=== PATIENT | female | born 1990 | race Caucasian/White ===

== ENCOUNTER → 2017-05-25 20:36 | Outpatient (CLI) | payer OTHER, SELFPAY ==
[2017-05-25 23:08] LABS: Chlamydia Trachomatis by PCR Negative (Negative)
[2017-05-25 23:09] LABS: Neisserai gonorrhoeae by PCR Negative (Negative); Probe Check PASS; Sample Adequacy Control PASS; Specimen Processing Control PASS
[2017-05-28 08:38] LABS: HPV Reflexed? NOT INDICATED
== END ==
PROVIDERS: Visit Provider Obstetrics & Gynecology
DX: Z11.3 Encounter for screening for infections with a predominantly sexual mode of transmission (principal); Z34.81 Encounter for supervision of other normal pregnancy, first trimester
CPT/HCPCS: 87086; 87491; 87591; 88175; G0145

== ENCOUNTER → 2017-06-02 14:21 | Outpatient (CLI) | payer OTHER, SELFPAY ==
--- NOTE | 2017-06-02 14:22 | US_ITS ---
STUDY: FIRST TRIMESTER OBSTETRICAL ULTRASOUND REASON FOR EXAM: Female, 27 years old. Small for dates. Assess viability. LMP: 04/07/2017 TECHNIQUE: Transvaginal real-time exam with moreno scale image documentation and limited Doppler color flow. PRIOR ULTRASOUND: None. FINDINGS: There is visualization of a single gestational sac in a normal intrauterine position. The mean sac diameter (MSD) measures 2.37 cm, indicating an estimated gestational age (EGA) of 7 weeks, 3 days. The gestational sac shape is within normal limits. There is a visualized yolk sac. The yolk sac measures 2.4 mm. The placenta is non-visualized. There is visualization of a live embryo. The crown-rump length (CRL) measures 0.76 cm, indicating an estimated gestational age (EGA) of 6 weeks, 5 days. There is demonstrated cardiac activity with a heart rate of 130 bpm. The estimated gestation age (EGA) by LMP is 8 weeks, 0 days. The estimated date of delivery (ARUN) by LMP is 01/12/2018. The estimated gestation age (EGA) by US is 7 weeks, 1 days. The estimated date of delivery (ARUN) by US is 01/18/2018. The uterus measures 9.9 x 4.9 cm. There is no demonstrated uterine fibroid. The cervix is closed. 1.3 x 0.4 x 2.9 cm subchorionic hemorrhage. The right ovary measures 5.3 x 2.6 x 2.7 centimeter. There is a 2.4 x 2.3 x 2.1 cm simple right ovarian cyst. There is no visualized right adnexal mass or complex lesion. The left ovary measures 2.7 x 1.5 x 1.4 cm. There is no left ovarian cyst. There is no visualized left adnexal mass or complex lesion. Single pocket of right paraovarian fluid. US/Init OB < 14Wks US IMPRESSION: Single living intrauterine fetus of 7 weeks and 1 day with an ARUN of 01/18/2018. heart rate of 130 bpm. Moderate size, 1.3 x 0.4 x 2.9 cm subchorionic hemorrhage. 2.4 x 2.3 x 3.1 cm simple cyst of the right ovary with a small right paraovarian fluid collection. Normal left ovary. Electronically Signed: Tiffany Franco MD at 15:32 EDT , Service support ,
[2017-06-02 15:23] LABS: Absolute Lymphocyte Count 2.74 X10^3/ul (0.83-4.51); Absolute Neutrophil Count 4.4 X10^3/uL (2.0-7.7); Basophil# 0.04 X10^3/uL; Basophil% 0.5 % (0-1); Eosinophil# 0.08 X10^3/uL; Eosinophils% 1.1 % (0-5); Hemoglobin 12.8 g/dl (12.0-15.0); Lymphocyte # 2.74 X10^3/ul (4.0); Lymphocyte % 36.1 % (19-41); Mean Corp Hgb Conc 34.6 g/gl (32-36); Mean Corpuscular Hgb 28.9 pg (27.0-32.0); Mean Corpuscular Volume 83.5 fL (81-99); Mean Platelet Vol. 9.7 fl (6.2-12.0); Monocyte# 0.35 X10^3/uL; Monocyte% 4.6 % (0-10); Neutrophil # 4.37 X10^3/uL (2.7-7.7); Neutrophil % 57.6 % (47-70); Platelet Count 311 K/mm3 (150-450); RBC Distribution Width CV 12.2 % (11.6-14.6); RBC Distribution Width SD 36.8 fl (35.1-43.9); Red Blood Count 4.43 M/mm3 (4.2-5.4); White Blood Count 7.6 K/mm3 (4.4-11.0)
[2017-06-02 15:26] LABS: POSITIVE COUNT NO; POSITIVE DIFFERENTIAL NO; POSITIVE MORPHOLOGY NO
[2017-06-03 03:15] LABS: Rapid Plasmin Reagin (RPR) NONREACTIVE (NONREACTIVE)
[2017-06-03 11:15] LABS: HIV - WCH Non-Reactive (Nonreactive); Rubella IgG 2.7 IU/mL
[2017-06-05 11:21] LABS: HEPATITIS B SURFACE AG Negative (Negative)
== END ==
PROVIDERS: Visit Provider Obstetrics & Gynecology
DX: Z34.81 Encounter for supervision of other normal pregnancy, first trimester (principal)
CPT/HCPCS: 36415; 76801; 85025; 86592; 86703; 86762; 86850; 86900; 87340

== ENCOUNTER → 2017-08-18 12:12 | Outpatient (CLI) | payer OTHER, SELFPAY ==
--- NOTE | 2017-08-18 12:14 | US_ITS ---
STUDY: SECOND AND THIRD TRIMESTER OBSTETRICAL ULTRASOUND REASON FOR EXAM: Female, 27 years old. survey. LMP: 04/07/2017 TECHNIQUE: Transabdominal PRIOR ULTRASOUND: 06/02/2017. FINDINGS: There is a single intrauterine fetus. The fetus is in a breech presentation. There is demonstrated cardiac activity with a heart rate of 144 bpm. There is a normal amniotic fluid volume. The largest amniotic fluid pocket measures 3.0 cm. The placenta is posterior in location and is not low lying. There are Grade 0 placental changes. The cervix measures 4.4 cm in length. The bilateral adnexal regions are normal. BIOMETRY: BPD: 4.0: 18 weeks, 2 days HC: 15.1: 18 weeks, 2 days AC: 13.2: 18 weeks, 6 days FL: 2.7: 18 weeks, 3 days CI: FL/BPD: FL/HC: FL/AC: HC/AC: age by current US: 18 weeks, 4 days. ARUN by current US: 01/15/2018. Estimated weight: 243 grams, +/- 36 grams, 20 %. age by prior US: weeks, days. ARUN by prior US: . Age by LMP: 19 weeks, 0 days. ARUN by LMP: 01/12/2018. ANATOMY: Gender: Cranium: Normal lateral ventricles. Normal choroid plexus. Normal cerebellum. Normal cisterna magna. Normal face, nose and lips. Chest: Normal 4-chamber heart. Abdomen/Pelvis: Normal diaphragm. Normal stomach. Normal abdominal wall. Normal cord insertion. Normal 3 vessel cord. Normal kidneys. Normal bladder. Spine: Normal cervical spine. Normal thoracic spine. Normal lumbar spine. Normal sacrum. Extremities: Normal bilateral upper extremities. Normal bilateral lower extremities. US/OB Anatomy Scan IMPRESSION: Single live fetus in a vertex presentation. No demonstrated anatomic abnormality. Placenta is grade 0 and is not low-lying. Cervix is closed. age by current US: 18 weeks, 4 days. ARUN by current US: 01/15/2018. Estimated weight: 243 grams, +/- 36 grams, 20 %. Electronically Signed: Randy Moy MD at 13:59 EDT , Service support ,
== END ==
LOC: OPUS 12:13
PROVIDERS: Visit Provider Nurse Practitioner Women's Health
DX: O34.219 Maternal care for unspecified type scar from previous cesarean delivery (principal); Z3A.00 Weeks of gestation of pregnancy not specified
CPT/HCPCS: 76805

== ENCOUNTER → 2017-10-13 11:41 | Outpatient (CLI) | payer OTHER, SELFPAY ==
[2017-10-13 12:51] LABS: Absolute Lymphocyte Count 1.98 X10^3/ul (0.83-4.51); Absolute Neutrophil Count 5.2 X10^3/uL (2.0-7.7); Basophil# 0.03 X10^3/uL; Basophil% 0.4 % (0-1); Eosinophil# 0.05 X10^3/uL; Eosinophils% 0.7 % (0-5); Hematocrit 32.8 % (37-47); Hemoglobin 11.4 g/dl (12.0-15.0); Lymphocyte # 1.98 X10^3/ul (4.0); Mean Corp Hgb Conc 34.8 g/gl (32-36); Mean Corpuscular Hgb 31.1 pg (27.0-32.0); Mean Corpuscular Volume 89.4 fL (81-99); Mean Platelet Vol. 10.1 fl (6.2-12.0); Monocyte# 0.38 X10^3/uL; Neutrophil # 5.16 X10^3/uL (2.7-7.7); Neutrophil % 67.8 % (47-70); Platelet Count 247 K/mm3 (150-450); RBC Distribution Width SD 41.7 fl (35.1-43.9); Red Blood Count 3.67 M/mm3 (4.2-5.4); White Blood Count 7.6 K/mm3 (4.4-11.0)
[2017-10-13 12:54] LABS: POSITIVE COUNT NO; POSITIVE DIFFERENTIAL NO; POSITIVE MORPHOLOGY NO
[2017-10-13 13:15] LABS: Glucose Challenge Gest 1H 50g 110 mg/dL (70-140)
== END ==
PROVIDERS: Visit Provider Obstetrics & Gynecology
DX: Z34.90 Encounter for supervision of normal pregnancy, unspecified, unspecified trimester (principal)
CPT/HCPCS: 36415; 82950; 85025

== ENCOUNTER → 2017-12-21 13:37 | Outpatient (CLI) | payer OTHER, SELFPAY ==
[2017-12-21 17:27] LABS: Group B Strep DNA By PCR Negative (Negative); Internal Control PASS; Probe Check PASS; Specimen Processing Control PASS
== END ==
LOC: LABSPEC 13:39
PROVIDERS: Referring Provider Obstetrics & Gynecology; Visit Provider Obstetrics & Gynecology
DX: Z34.90 Encounter for supervision of normal pregnancy, unspecified, unspecified trimester (principal)
CPT/HCPCS: 87081; 87653

== ENCOUNTER 2018-01-05 09:46 | Inpatient (IN) | payer OTHER, SELFPAY ==
[2018-01-03 11:18] VITALS: BMI 27.1
--- NOTE | 2018-01-04 01:54 | HP.PCM_ITS ---
- Problem List (1) Small for dates affecting management of mother Status: Acute Qualifiers: Comment: scheduled for the 25th- previous normal; 12/29/17- normal growth. (2) Status: Acute Qualifiers: Comment: previuos terms LTCS secondary to FTP pushed 3 1/2 hrs weight 8 lbs 1 ounce (3) Tubal ligation evaluation Status: Acute Comment: with RCS 01/05/18 (4) Previous delivery affecting Status: Acute Comment: planning RLTCS (5) Supervision of normal Status: Acute Qualifiers: Comment: PRR ARUN 01/12/18 Girl Addis Singh Hamzah History Date of Admission: 01/05/18 Final ARUN: 01/12/18 Gestational age: 38 Weeks and 6 Days History of this : This is a 27 year-old, at 38 weeks gestational age presents for RLTCS. she had a previous cs secondary to FTP. she has had an uncomplicated . Medical History: Medical History (Last Reviewed 12/28/17 @ 10:30 by Gisele Thornton) Abnormal Pap smear of cervix R87.619 Surgical History: Surgical History (Last Reviewed 12/28/17 @ 10:30 by Gisele Thornton) delivery delivered O82 Allergies naproxen Allergy (Verified 12/28/17 10:30) Swelling Home Medications: Home Medications Vits [Prenatabs FA ] 1 tab PO DAILY 08/09/16 Smoking Status: Never smoker Alcohol: None Number of Fetus(es): 1 Heart Tracin History Past Pregnancies: Past Pregnancies Pregancy History 2 Elective abortions Hx Para 1 Spontaneous abortions Hx # Term Pregnancies Ectopic pregnancies Hx # Pregnancies Multiple births # of living children Past Pregnancies Del. Date Name GA/Weeks Outcome Route Bth Weight Infant Gen Labor Lgth Anesthesia Del Locatn Provider FOB Unknown 2016 Francisco 41 live - full term 8 LBS 1 OUNCE Mateo Delivery Date: On 05/25/17 @ 09:27 Tamiko Dupont IOL POSTDATES PUSHED 3 1/2 HOURS Labs: Course Did the patient receive Yes care? Labs Blood Type: A RH: POSITIVE RPR/VDRL/Syphilis Nonreactive Rubella status Immune HbSAg Negative Date Done: 06/02/17 Chlamydia Negative Gonorrhea Negative HIV/AIDS Non-Reactive Group B Strep: Negative Current Obstetrical History Gestational Diabetes No Incompetent Cervix No Infertility No IUGR No Macrosomia No Hypertension/Pre-eclampsia No Placenta Previa/Abruption No PTL/PROM No Uterine anomaly No Oligohydramnios No Polyhydramnios No Multiple gestation No Past Medical History Asthma No Diabetes No Hypertension No Heart disease No Mitral valve prolapse No Neurologic/Seizure disorder/ No Migraines Kidney disease No Liver disease No Varicosities No Clotting disorders/Hx of DVT No Thyroid Dysfunction No Other medical diseases No Psychiatric disorders No Major trauma No Abnormal PAP smear Yes: in the past ; nothing currect Sleep apnea No Mammogram in the last 2 years No Social History Marital Status: Alleged father Hamzah Hx Smoking No Smoking Status Never smoker Expected Delivery Method: Scheduled Section, Repeat Section Describe any other labor & delivery plans:: OB Visit. ARUN Calculator. Eli mated Delivery Date 01/12/18. Based on LMP (certain) 04/07/17. Current WG 37w 6d. Number 1. Expected Delivery Route/Plan. RLTCS BTL. Specific Issue/Plans. flu vaccine: given. minichart given: given. tdap vaccine: given. rhogam: NA. LARC form signed: declines. labor support person: Hamzah. pain management: R CS. cut cord/dad catch: : yes. PP control planned: BTO Review of Systems Constitutional: Denies: Fever, Malaise Eyes: Denies: Blurred vision, Vision Change HEENT: Denies: Head Aches, Visual Changes Cardiovascular: Denies: Chest Pain, Palpitations Respiratory: Denies: Cough, Shortness of Breath, Wheezing Gastrointestinal: Denies: Abdominal Pain, Diarrhea, Nausea, Vomiting Genitourinary: Denies: Dysuria, Hematuria Musculoskeletal: Denies: Joint Pain, Muscle pain Skin: Denies: Lesions, Rash Neurological: Denies: Blurred vision, Focal weakness, Headaches Psychiatric: Denies: Anxiety, Depression Endocrine: Denies: Heat/ Cold Intolerance Hematologic/ Lymphatic: Denies: Easy Bruising, Easy Bleeding Physical Exam General: Alert, Cooperative, No apparent distress HEENT: Atraumatic, Normocephalic. Negative for: Thyromegaly, Lymphadenopathy Cardiovascular: Regular rate Lungs: Normal air movement Abdomen: Soft, Non Tender, Gravid Neurological: Deep Tendon Reflexes 2+/4 and Symmetrical, Neuro grossly intact. Negative for: Clonus MONORAIL HELPER: Normal external genitalia. Negative for: Vulvar lesions Estimated gestational size: Appropriate for gestational size Presentation: Cephalic Assessment/Plan All Active Problems (Last Reviewed 12/28/17 @ 10:30 by Gisele Thornton) Small for dates affecting management of mother (Acute) (Acute) Tubal ligation evaluation (Acute) Previous delivery affecting (Acute) Supervision of normal (Acute) This is a 27 year-old, at 38 weeks gestational age for RLTCS not a candidate due to CPD plan RLTCS desires BTL
[2018-01-05] VITALS (16 sets, daily range): BP systolic 104–126; BP diastolic 44–94; PULSE 62–91; RESP 14–18; TEMP 36.1–36.7; O2SAT 96–100
[2018-01-05] MEDS: Lactated Ringers 1,000 ML 999 ML IV (10:10)
[2018-01-05 10:20] LABS: Absolute Lymphocyte Count 1.59 X10^3/ul (0.83-4.51); Absolute Neutrophil Count 4.6 X10^3/uL (2.0-7.7); Basophil# 0.02 X10^3/uL; Basophil% 0.3 % (0-1); Eosinophil# 0.07 X10^3/uL; Hematocrit 29.6 % (37-47); Hemoglobin 10.1 g/dl (12.0-15.0); Lymphocyte # 1.59 X10^3/ul (4.0); Lymphocyte % 23.3 % (19-41); Mean Corp Hgb Conc 34.1 g/gl (32-36); Mean Corpuscular Hgb 30.8 pg (27.0-32.0); Mean Corpuscular Volume 90.2 fL (81-99); Mean Platelet Vol. 9.8 fl (6.2-12.0); Monocyte# 0.48 X10^3/uL; Neutrophil # 4.64 X10^3/uL (2.7-7.7); Neutrophil % 68.3 % (47-70); Platelet Count 209 K/mm3 (150-450); RBC Distribution Width CV 13.9 % (11.6-14.6); RBC Distribution Width SD 43.7 fl (35.1-43.9); Red Blood Count 3.28 M/mm3 (4.2-5.4); White Blood Count 6.8 K/mm3 (4.4-11.0)
[2018-01-05 10:21] LABS: POSITIVE COUNT NO; POSITIVE DIFFERENTIAL NO; POSITIVE MORPHOLOGY NO
[2018-01-05] MEDS: Lactated Ringers 1,000 ML 150 ML IV (11:08)
[2018-01-05] MEDS: Sodium Citrate/Citric Acid 30 ML UDC PO (11:52)
[2018-01-05] MEDS: Cefazolin 2 GM in 0.9% Normal Saline 100 ML IV (13:45)
[2018-01-05] MEDS: Lactated Ringers 1,000 ML 100 ML IV (16:38)
--- NOTE | 2018-01-05 16:50 | OP.PCM_ITS ---
Problem List (1) Small for dates affecting management of mother Status: Acute Qualifiers: Comment: scheduled for the 25th- previous normal; 12/29/17- normal growth. (2) Status: Acute Qualifiers: Comment: previuos terms LTCS secondary to FTP pushed 3 1/2 hrs weight 8 lbs 1 ounce (3) Tubal ligation evaluation Status: Acute Comment: with RCS 01/05/18 (4) Previous delivery affecting Status: Acute Comment: planning RLTCS (5) Supervision of normal Status: Acute Qualifiers: Comment: PRR ARUN 01/12/18 Girl Addis Singh Hamzah Report of Operation Date of Procedure: 01/05/18 Pre-Operative Diagnosis: Declined trial of labor after and sterilization request Post-Operative Diagnosis: Same Surgery/Procedure Performed:: Repeat low transverse bilateral tubal ligation via Filshie clips Description of Surgical Findings:: Normal uterus tubes and ovaries assessment specialist: Lissett Mcgill Type of Anesthesia:: Spinal Special Medications: Ancef Specimen's removed: Female Drains: Woody Estimated Blood Loss (mL): 600 Fluids Replaced: Styloid Description of Procedure: The patient is a 27-year-old at 39 weeks presented for repeat bilateral tubal ligation. Spinal anesthesia was placed without difficulty. Woody catheter was placed. The patient was placed in the dorsal supine position with leftward tilt. Patient was prepped and draped in the normal sterile fashion. Pfannenstiel skin incision was made with the scalpel and carried through to the underlying layer of fascia with the scalpel. Fascia was nicked in the midline and the incision extended laterally. The rectus bellies were dissected off superiorly and inferiorly with out complication both sharply and bluntly. The peritoneum was entered digitally. The incision was stretched and a low transverse uterine incision was made with the scalpel. The 's head was delivered atraumatically followed by the anterior and posterior shoulders without complication the rest of the delivered. The cord was clamped and cut and the infant was handed off to awaiting nurse. The placenta was delivered spontaneously immediately following and was noted to be intact and have a three- vessel cord. The uterus was exteriorized cleared of all clots and debris, and the incision was closed in a double layer closure using #1 Monocryl. Bilateral fallopian tubes were elevated and Filshie clips were applied and duplicate jean marie aterally so a total of 4 with complete occlusion and transection of the tubes noted. the uterus was returned to the maternal abdomen and gutters were cleared of all clots and debris. The ovaries and fallopian tubes were noted to be within normal limits. The peritoneum was closed with 3-0 Monocryl in a running fashion. Fascia was closed with 0 PDS in a running fashion. Subcutaneous tissue was copiously irrigated and the skin was closed with 3-0 Monocryl in a subcuticular fashion. Mepilex dressing were applied without complication. Patient was taken to recovery in stable condition. Grafts/Implants Used: None - Complications None - Admit VTE Documentation VTE Present on Admission: No
[2018-01-06] VITALS (12 sets, daily range): BP systolic 100–124; BP diastolic 45–72; PULSE 69–102; RESP 16–18; TEMP 36.6–37.3; O2SAT 98–100
[2018-01-06 05:53] LABS: Hematocrit 27.6 % (37-47); Hemoglobin 9.6 g/dl (12.0-15.0); Mean Corp Hgb Conc 34.8 g/gl (32-36); Mean Corpuscular Hgb 31.4 pg (27.0-32.0); Mean Corpuscular Volume 90.2 fL (81-99); Mean Platelet Vol. 9.5 fl (6.2-12.0); Platelet Count 181 K/mm3 (150-450); RBC Distribution Width CV 13.6 % (11.6-14.6); RBC Distribution Width SD 43.4 fl (35.1-43.9); Red Blood Count 3.06 M/mm3 (4.2-5.4); White Blood Count 8.7 K/mm3 (4.4-11.0)
[2018-01-06 05:57] LABS: Scan Indicated on CBC? Y/N NO
[2018-01-06] MEDS: 0.9% Saline Lock 10 ML Syringe IV (05:57)
[2018-01-06] MEDS: Acetaminophen 500 MG Tablet 1000 MG PO ×2 (08:32→16:59)
--- NOTE | 2018-01-06 09:52 | PN.OBGYN_ITS ---
Subjective: doing well no complaints - Physical Exam General: Alert, Oriented x3, Cooperative HEENT: Atraumatic, PERRLA, EOMI, Normocephalic Neck: Supple, No JVD, Negative Carotid Bruits Lungs: Clear to auscultation, Normal air movement Cardiovascular: Regular rate, No murmurs Abdomen: Bowel Sounds Present, Soft, Non Tender Extremities: No edema, Capillary Refill Less than 3 Seconds Skin: No rashes, No breakdown Musculoskeletal: No Tenderness to Palpation of Joints or Extremities Neurological: Cranial nerves II-XII grossly intact Psych/Mental Status: Normal Affect, Appropriate Vital Signs Temp Pulse Resp BP Pulse Ox 98.1 F 69 16 116/50 L 100 01/06/18 08:00 01/06/18 08:00 01/06/18 08:00 01/06/18 08:00 01/06/18 08:00 Oxygen Delivery Method Room Air Weight: 163 lb 2.273 oz Body Mass Index (BMI) 27.1 Intake and Output for Last 24 Hours 01/04/18 01/05/18 01/06/18 23:59 23:59 23:59 Intake Total 2156 / 2156 1283 / 1283 Output Total 1000 / 1000 3000 / 3000 Balance 1156 / 1156 -1717 / -1717 Laboratory Tests Past 24 Hrs 01/05/18 01/05/18 01/06/18 10:10 10:10 05:40 WBC 6.8 8.7 RBC 3.28 L 3.06 L Hgb 10.1 L 9.6 L Hct 29.6 L 27.6 L MCV 90.2 90.2 MCH 30.8 31.4 MCHC 34.1 34.8 RDW 13.9 13.6 RDW Differential 43.7 43.4 Plt Count 209 181 MPV 9.8 9.5 Immature Gran % (Auto) 0.100 Neut % (Auto) 68.3 Lymph % (Auto) 23.3 Hitchcock % (Auto) 7.0 Eos % (Auto) 1.0 Baso % (Auto) 0.3 Absolute Neuts (auto) 4.6 Absolute Lymphs (auto) 1.59 Total Counted Not Reportable Blood Type A POSITIVE Antibody Screen NEGATIVE Medical Necessity - Tobacco Use Smoking Status: Never smoker Assessment/Plan All Active Problems (Last Reviewed 12/28/17 @ 10:30 by Gisele Thornton) Small for dates affecting management of mother (Acute) (Acute) Tubal ligation evaluation (Acute) Previous delivery affecting (Acute) Supervision of normal (Acute) s/p LTCS PPD # 1 1. routine post care 2. breast feeding- support given 3. rh positive 4. rubella immune
[2018-01-06] MEDS: Prenatal Vits Tablet 1 TABLET PO (13:58)
[2018-01-07 02:15] VITALS: BP 116/62; PULSE 75; RESP 18; TEMP 37.9; O2SAT 97
[2018-01-07 02:18] VITALS: TEMP 37.2
[2018-01-07 09:30] VITALS: BP 120/63; PULSE 71; RESP 18; TEMP 37.4; O2SAT 97
[2018-01-07] MEDS: Senna/Docusate Sodium 1 Tablet PO (11:55)
[2018-01-07] MEDS: Prenatal Vits Tablet 1 TABLET PO (11:56)
--- NOTE | 2018-01-07 13:50 | PCM.PN.OB ---
Subjective: doing well no complaints - Physical Exam General: Alert, Oriented x3 Vital Signs Temp Pulse Resp BP Pulse Ox 99.4 F H 71 18 120/63 97 01/07/18 09:30 01/07/18 09:30 01/07/18 09:30 01/07/18 09:30 01/07/18 09:30 Oxygen Delivery Method Room Air Weight: 163 lb 2.273 oz Body Mass Index (BMI) 27.1 Intake and Output for Last 24 Hours 01/05/18 01/06/18 01/07/18 23:59 23:59 23:59 Intake Total 2156 / 2156 1283 / 1283 Output Total 1000 / 1000 3800 / 3800 Balance 1156 / 1156 -2517 / -2517 Medical Necessity - Tobacco Use Smoking Status: Never smoker Assessment/Plan All Active Problems (Last Reviewed 12/28/17 @ 10:30 by Gisele Thornton) Small for dates affecting management of mother (Acute) (Acute) Tubal ligation evaluation (Acute) Previous delivery affecting (Acute) Supervision of normal (Acute) s/p LTCS PPD # 2 1. routine post care 2. breast feeding- support given 3. rh positive 4. rubella immune
--- NOTE | 2018-01-07 13:51 | DCINST_ITS ---
Discharge Diet: No Restrictions Discharge Activity: May Not Drive - for 2 weeks, May not drive while taking narcotic pain medications., May Shower, May Take a Tub Bath - in 7 days May resume sexual activity in: 4-6 weeks Lifting Restrictions: 20 pounds Additional Activity Instructions:: Nothing in the vagina for 4-6 weeks. You may return to work/school in 6 weeks. Call your doctor if your incision/area has: Continuous Slow Oozing, Sudden Increased Bleeding, Increased Pain/ Swelling, Increased Redness, Foul Smelling Discharge Call your doctor if you observe: Fever of 101 or Higher, Using more than one pad per hour - for 2 hours Suture Line Care: Avoid Pulling/Pushing, Avoid Pinching/Bending Cleanse incision/area with: Keep Dressing Clean & Dry Additional Instructions: If you experience any of the following, contact your healthcare provider. * Bleeding that soaks a pad every hour for 2 hours * Fever 100.4 or higher * Unrelieved incision or abdominal pain * Swelling, redness, discharge or bleeding from your incision or episiotomy site * Your incision begins to separate * Problems urinating (including inability to urinate or burning while urinating). * Visual changes * Severe headache * Flu-like symptoms * Pain or redness in one of both of your breasts * Pain, warmth, tenderness or swelling in your legs, especially the calf area * Frequent nausea and vomiting * Symptoms of depression or anxiety If you experience any of the following, call 911 or go to the nearest Emergency Room. * Chest pain * Problems breathing * Seizure activity * Partial or complete paralysis of a body part, slurred speech, weakness or drooping of the face, or a sudden inability to walk or hold your balance Allergies/Adverse Reactions: Allergies naproxen Allergy (Verified 12/28/17 10:30) Swelling Medications to take at Discharge Vits [Prenatabs FA ] 1 tab PO DAILY 08/09/16 Follow-Up: Call to make an appointment with your doctor for an incision check in 1-2 weeks. You will also need a 6 week post- follow up appointment. Test results from this visit will be discussed in further detail at your follow- up appointment, if applicable. Please Follow Up With: Tamiko Dupont MD - Call to make an appointment for an incision check in 1-2 [phone] When: You will need a post- check in 6 weeks. Primary Care Physician: Care Physician,No Primary [Primary Care Provider] -
[2018-01-07 14:36] VITALS: BP 110/66; PULSE 64; RESP 14; TEMP 37.4; O2SAT 98
== END 2018-01-07 14:55 | disposition home or self-care (01) | DRG 785 ==
PROVIDERS: Admitting Provider Obstetrics & Gynecology; Referring Provider Obstetrics & Gynecology; Visit Provider Obstetrics & Gynecology
DX: O34.211 Maternal care for low transverse scar from previous cesarean delivery (principal); Z3A.38 38 weeks gestation of pregnancy; Z37.0 Single live birth
CPT/HCPCS: 85025; 85027; 86850; 86900; 99218; J7120; A4216; G0378; J2405

== ENCOUNTER → 2019-05-25 11:15 | Outpatient (CLI) | payer OTHER, SELFPAY ==
[2018-02-16 10:42] VITALS: BMI 22.6
[2019-05-25 17:42] LABS: Internal QC Validated? YES +Cl - CLEAR BKGD; Pregnancy, Urine Negative Negative
== END ==
PROVIDERS: Referring Provider Nurse Practitioner Family; Visit Provider Nurse Practitioner Family
DX: L70.0 Acne vulgaris (principal); Z79.899 Other long term (current) drug therapy
CPT/HCPCS: 81025

== ENCOUNTER → 2019-06-28 11:29 | Outpatient (CLI) | payer OTHER, SELFPAY ==
[2018-02-16 10:42] VITALS: BMI 22.6
[2019-06-28 15:23] LABS: Absolute Lymphocyte Count 2.84 X10^3/uL (0.83-4.51); Absolute Neutrophil Count 2.5 X10^3/uL (2.0-7.7); Basophil# 0.06 X10^3/uL; Basophil% 1.1 % (0-1); Eosinophil# 0.05 X10^3/uL; Eosinophils% 0.9 % (0-5); Hematocrit 39.9 % (37-47); Hemoglobin 13.2 g/dL (12.0-15.0); Lymphocyte # 2.84 X10^3/ul (4.0); Lymphocyte % 49.9 % (19-41); Mean Corp Hgb Conc 33.1 g/dL (32-36); Mean Corpuscular Hgb 28.9 pg (27.0-32.0); Mean Corpuscular Volume 87.3 fL (81-99); Mean Platelet Vol. 10.4 fl (6.2-12.0); Monocyte# 0.28 X10^3/uL; Monocyte% 4.9 % (0-10); NRBC Flagged by Analyzer 0 % (0-5); Neutrophil # 2.45 X10^3/uL (2.7-7.7); Platelet Count 327 K/mm3 (150-450); RBC Distribution Width CV 12.2 % (11.6-14.6); RBC Distribution Width SD 39.2 fl (35.1-43.9); Red Blood Count 4.57 M/mm3 (4.2-5.4); White Blood Count 5.7 K/mm3 (4.4-11.0)
[2019-06-28 15:26] LABS: Internal QC Validated? YES +Cl - CLEAR BKGD; Pregnancy, Urine Negative Negative
[2019-06-28 15:49] LABS: ALB/GLOB Ratio 1.2 RATIO (0.9-2.4); AST(SGOT) 21 U/L (15-37); Alanine Aminotransfer ALT/SGPT 15 U/L (13-56); Albumin, Serum 4.5 g/dL (3.2-5.0); Alkaline Phosphatase 88 U/L (45-117); Anion Gap 8 (5-15); BUN 10 mg/dL (7-18); BUN/Creat Ratio 13.2 RATIO (10-20); Calcium,Total 9.3 mg/dL (8.5-10.1); Chloride 103 mmol/L (98-107); Cholesterol 242 mg/dL (200); Creatinine, Serum 0.76 mg/dL (0.55-1.02); EST Glomerular Filtration Rate 96 mL/min (>60); Est Glom Filt Rate - Afr Amer 116 mL/min (>60); Globulin 3.7 g/dL (2.2-4.2); Glucose 85 mg/dL (74-106); High Density Lipoprotein 44 mg/dL; Potassium 3.3 mmol/L (3.5-5.1); Protein, Total 8.2 g/dL (6.4-8.2); Sodium Level 137 mmol/L (136-145); Triglycerides 169 mg/dL; Very Low Density Lipoprotein 34 mg/dL (5-40)
== END ==
PROVIDERS: Referring Provider Physician Assistant; Visit Provider Physician Assistant
DX: L70.0 Acne vulgaris (principal); Z79.899 Other long term (current) drug therapy
CPT/HCPCS: 36415; 80053; 80061; 81025; 85025

== ENCOUNTER → 2019-07-31 11:42 | Outpatient (CLI) | payer OTHER, SELFPAY ==
[2018-02-16 10:42] VITALS: BMI 22.6
[2019-07-31 15:04] LABS: Absolute Lymphocyte Count 2.44 X10^3/uL (0.83-4.51); Absolute Neutrophil Count 2.5 X10^3/uL (2.0-7.7); Basophil# 0.07 X10^3/uL; Basophil% 1.3 % (0-1); Eosinophil# 0.05 X10^3/uL; Eosinophils% 0.9 % (0-5); Hematocrit 37.8 % (37-47); Hemoglobin 12.6 g/dL (12.0-15.0); Lymphocyte # 2.44 X10^3/ul (4.0); Lymphocyte % 45.7 % (19-41); Mean Corp Hgb Conc 33.3 g/dL (32-36); Mean Corpuscular Hgb 29.4 pg (27.0-32.0); Mean Corpuscular Volume 88.1 fL (81-99); Mean Platelet Vol. 10.6 fl (6.2-12.0); Monocyte% 5.6 % (0-10); NRBC Flagged by Analyzer 0 % (0-5); Neutrophil # 2.47 X10^3/uL (2.7-7.7); Neutrophil % 46.3 % (47-70); Platelet Count 280 K/mm3 (150-450); RBC Distribution Width CV 12.3 % (11.6-14.6); RBC Distribution Width SD 39.5 fl (35.1-43.9); Red Blood Count 4.29 M/mm3 (4.2-5.4); White Blood Count 5.3 K/mm3 (4.4-11.0)
[2019-07-31 15:25] LABS: AST(SGOT) 25 U/L (15-37); Alanine Aminotransfer ALT/SGPT 19 U/L (13-56); Albumin, Serum 4.1 g/dL (3.2-5.0); Alkaline Phosphatase 86 U/L (45-117); Bilirubin, Direct 0.09 mg/dL (0.00-0.30); Cholesterol 217 mg/dL (200); Globulin 3.4 g/dL (2.2-4.2); High Density Lipoprotein 41 mg/dL; Protein, Total 7.5 g/dL (6.4-8.2); Triglycerides 150 mg/dL; Very Low Density Lipoprotein 30 mg/dL (5-40)
--- OUTSIDE RECORDS SUMMARY | 2019-12-18 17:09 | XMS RPT_ITS | CCD ---
:1990 External Reference #:[id number] Author Organization [employer] Care Team Providers Name Role Phone JOHN SHELBY Unavailable Unavailable SHELBY LOPEZ Unavailable Unavailable REY ALMARAZ Unavailable Unavailable FABIOLA EMERSON Unavailable Unavailable NO PRIMARY CARE Unavailable Unavailable BACAK, J Unavailable Unavailable MARCANTHONY, E Unavailable Unavailable NO PRIMARY CARE Unavailable Unavailable Allergies Reported Allergen Reaction(s) Severity Date of Onset Location naproxen Translations: [ AOF 01-15-2016 - [facility] NAPROXEN SODIUM] [place] [facility] Results Result Name Value Range Unit Interpretation Flag Date Location progress on 2016-09 PROGRESS HNO ID: [id number]: Shelby Lupe 09-21-2016 [facility] JamesService: (none)Author Type: [place] ([id number]) PhysicianType: Progress NotesFiled: 09/21/2016 10:19 AMNote Text: VISITCandida Miller is a 26 year old year old here for visit.Delivery Summary:Pt delivered via CS per Dr. Lopez on 08/10/2016. Male. [place]. 8lb1oz. Recovery:Feeding: Breast feedingBreastfeeding problems: Sore nipplesMenses since delivery: Not resumedMenstrual pattern prior to : Regular periodsIntercourse since delivery: ResumedDepression: denies symptoms of depression. See depressionscreening tab.Emotional support: YesBowel symptoms: Negative for abdominal discomfort, blood in stools orblack stools and change in bowel habitsBladder symptoms: No dysuria, gross hematuria, urinary frequency, urinaryurgency, or incontinenceOther issues: NoneLast Pap: 01/2016 normal HPV: N/APAST MEDICAL HISTORYDiagnosis Date- Abnormal Pap smear of cervix 2010 +HPV, normal paps sincePAST SURGICAL [id number]/10/2016: DELIVERY ONLYFAMILY HISTORY None Paternal Grandfather Comment: negative family historySOCIAL HISTORY Social History Marital status: Single Spouse name: Years of education: 15 Number of children:Occupational 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 Main Topics Smoking status: Never Smoker Smokeless status: Never Used Drug use: No Sexual activity: Yes Partners with: MalePHYSICAL EXAMINATION:There were no vitals taken for this visit.GENERAL: pleasant, female in no apparent distressHEENT: Normocephalic, atraumatic, mucus membranes moist and no lesionsNECK: Supple, full range of motion, no adenopathy and thyroid normalDERMATOLOGY: Normal, without lesions, non-icteric and non-hirsuteBREAST: soft, non-tender, symmetric, no dominant mass, normalnipple-areolar complex, no lymphadenopathy and no nipple dischargeCHEST: Normal inspiratory effortABDOMEN: soft, non-tender and no masses. No incisional redness, swelling,or drainage.PELVIC: external genitalia normal, normal Bartholin's glands, urethra,Aquadale's glands, no vulvar lesions, no cervical lesions, good vaginalsupport, physiologic discharge present, normal appearing perineal body andperianal regionBIMANUAL: uterus normal size, shape and consistency, no adnexal masses andnon-tenderNEURO: alert and oriented x3,exam grossly non-focalEXTREMITIES: normalASSESSMENT AND PLAN:26 year old status post CS with normal course.Contraception plan: micronorFollow up: RTC for annual exams and PRElicia Lopez MD hosp on 2016-09-21 HOSP Office Visit Normal 2016 [place] ([place]) ------CANDIDA MILLER [facility] ([id number]) 1990 FDate Time Provider Department09/21/16 9:40 AM SHELBY LOPEZ During your [facility] visit today, we recorded the following information about you: Blood pressure Weight 98/60 59 ([id number]) Fanta Lopez MD 09/21/2016 10:19 AM SignedPOSTPARTUM VISITCandida Miller is a 26 year old year old here for visit.Delivery Summary:Pt delivered via CS per Dr. Lopez on 08/10/2016. Male. [place]. 8lb1oz.Postpart um Recovery:Feeding: Breast feedingBreastfeeding problems: Sore nipplesMenses since delivery : Not resumedMenstrual pattern prior to : Regular periodsIntercourse since del ro: ResumedDepression: denies symptoms of depression. See depression screen ingtab.Emotional support: YesBowel symptoms: Negative for abdominal discomfort, blood in stools or blackstools and change in bowel habitsBladder symptoms: No dysuria, gross hematuria, urinary oneil quency, urinaryurgency, or incontinenceOther issues: NoneLast Pap: 01/2016 normal HPV: N/APAST MEDICAL HISTORYDiagnosis Date- Abnormal Pap smear of cervix 2010 +HPV, normal paps sincePAST SURGIC AL NLIECEO7808/10/2016: DELIVERY ONLYFAMILY HISTORY None Paternal Grandfather Comment : negative family historySOCIAL HISTORY Social History Marital status: Single Spouse name: Years of education: 15 Number of children:Occupational 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 Topics Smoking status: Never Smoker Smokeless status: Never Used Drug use: No Sexual activity: Yes Partners with: MalePHYSICAL EXAMINATION:There were no vi tals taken for this visit.GENERAL: pleasant, female in no apparent distressHEENT: Norm ocephalic, atraumatic, mucus membranes moist and no lesionsNECK: Supple, full range of motion , no adenopathy and thyroid normalDERMATOLOGY: Normal, without lesions, non-icteric and non -hirsuteBREAST: soft, non-tender, symmetric, no dominant mass, normal nipple-areolarcomplex, no ly mphadenopathy and no nipple dischargeCHEST: Normal inspiratory effortABDOMEN: soft, non-ten jackie and no masses. No incisional redness, swelling, ordrainage.PELVIC: external genitalia normal, n ormal Bartholin's glands, urethra, Aquadale'sglands, no vulvar lesions, no cervical lesions, good va ginal support,physiologic discharge present, normal appearing perineal body and perianalregionBIMAN UAL: uterus normal size, shape and consistency, no adnexal masses andnon-tenderNEURO: alert an d oriented x3,exam grossly non-focalEXTREMITIES: normalASSESSMENT AND PLAN:26 year old sta tus post CS with normal course.Contraception plan: micronorFollow up: RTC for a nnual exams and PRNAida Barbosa Provider: SHELBY LOPEZ [[id number]]Allergies As of Date: 09/21/2016 Noted Allergy ReactionNAPROXEN SODIUM 01/15/2016 7 - SwellingDate Reviewed: 09/21Reviewed by: Cathy Santiago Ma - Fully AssessedPrimary Visit Diagnosis: care an d examination [Z39.2]Prescriptions as of 09/21/2016 Sig: NORETHINDRONE (CONTRACEPTIVE)* Take 1 tabl et by mouth once d* FERROUS SULFATE 325 MG (65 MG* Take 325 mg by mouth daily wi* VIT ANAND,CALCIUM,MINE* Take 1 tablet by mouth.Problem List As Of Date 09/21/2016 Noted Resolved En counter for supervision of normal first pregn*INVALID FOR*09/08/2016 More... Rubella non-immune s tatus, antepartum [O99.89, *INVALID FOR*09/08/2016 More...Disposition: Return in about 1 year (arou nd 09/21/2017).Follow-up and Disposition History RecordedEncounter Number: [id number] Status:Closed by SHELBY LOPEZ MD on 09/21/16 Encounters Date Type Reason Provider Location 09-21-2016 - [facility] 09-22-2016 JOHN Rosa ([phone]) 12-29-2017 - Patient encounter [facility] WANG [facility] 12-29-2017 [facility] ([id number]) [facility] 11-29-2017 - Patient encounter REY LOERA [facility] 11-29-2017 [place] [facility] ([phone]) [facility] Payers Payer Name Policy Number Location [facility] [id number] [facility] ([id number]) [id number] [facility] ([id number]) [id number] [facility] ([id number]) The following information is from the original human readable contentNo Payer Records Found Summary Purpose Family History No Family History Records FoundNo Family History Records Found Advance Directives No Advanced Directives Records FoundNo Advanced Directives Records Found Additional Source Comments FOR RECORDS PERTAINING TO PATIENTS WHO ARE OR HAVE BEEN ENROLLED IN A CHEMICAL DEPENDENCY/SUBSTANCE ABUSE PROGRAM, SOME INFORMATION MAY BE OMITTED. This clinical summary was aggregated from multiple sources. Caution should be exercised in using it in the provision of clinical care. This summary normalizes information from multiple sources, and as a consequence, information in this document may materially changethe coding, format and clinical context of patient data. In addition, data may be omittedin some cases. CLINICAL DECISIONS SHOULD BE BASED ON THE PRIMARY CLINICAL RECORDS. [facility] provides no warranty or guarantee of the accuracy or completeness of information in this document. UNRECOGNIZED CONTENT PROVIDED BELOW FOR UNRECOGNIZED SECTION INFORMATION SOURCE DATE CREATED AUTHOR AUTHOR'S ORGANIZATIO N 08/31/2017 [facility] DATE CREATED AUTHOR AUTHOR'S ORGANIZATIO N 01/27/2018 [facility]
== END ==
LOC: MTLAB 11:43
PROVIDERS: Referring Provider Physician Assistant; Visit Provider Physician Assistant
DX: L70.0 Acne vulgaris (principal); L24.9 Irritant contact dermatitis, unspecified cause; Z79.899 Other long term (current) drug therapy
CPT/HCPCS: 36415; 80061; 80076; 85025

== ENCOUNTER → 2019-10-31 15:59 | Outpatient (CLI) | payer OTHER, SELFPAY ==
[2019-10-31 15:28] VITALS: BMI 22.6
[2019-10-31 17:36] LABS: ALB/GLOB Ratio 1.2 RATIO (0.9-2.4); AST(SGOT) 20 U/L (15-37); Alanine Aminotransfer ALT/SGPT 13 U/L (13-56); Albumin, Serum 4.4 g/dL (3.2-5.0); Alkaline Phosphatase 100 U/L (45-117); Anion Gap 6 (5-15); BUN 9 mg/dL (7-18); BUN/Creat Ratio 11.3 RATIO (10-20); Calcium,Total 9.1 mg/dL (8.5-10.1); Chloride 105 mmol/L (98-107); Creatinine, Serum 0.79 mg/dL (0.55-1.02); EST Glomerular Filtration Rate 91 mL/min (>60); Est Glom Filt Rate - Afr Amer 110 mL/min (>60); Globulin 3.6 g/dL (2.2-4.2); Glucose 85 mg/dL (74-106); Potassium 3.7 mmol/L (3.5-5.1); Sodium Level 138 mmol/L (136-145)
== END ==
PROVIDERS: PCP Family Medicine; Referring Provider Obstetrics & Gynecology; Visit Provider Obstetrics & Gynecology
DX: N93.9 Abnormal uterine and vaginal bleeding, unspecified (principal)
CPT/HCPCS: 36415; 80053; 84443

== ENCOUNTER → 2019-11-01 15:12 | Outpatient (CLI) | payer OTHER, SELFPAY ==
[2019-10-31 15:28] VITALS: BMI 22.6
[2019-11-01 17:34] LABS: Hematocrit 36.9 % (37-47); Hemoglobin 12.8 g/dL (12.0-15.0); Mean Corp Hgb Conc 34.7 g/dL (32-36); Mean Corpuscular Hgb 30.1 pg (27.0-32.0); Mean Corpuscular Volume 86.8 fL (81-99); Mean Platelet Vol. 11.2 fl (6.2-12.0); Platelet Count 313 K/mm3 (150-450); RBC Distribution Width CV 11.9 % (11.6-14.6); RBC Distribution Width SD 37.3 fl (35.1-43.9); Red Blood Count 4.25 M/mm3 (4.2-5.4); White Blood Count 7.1 K/mm3 (4.4-11.0)
[2019-11-01 18:01] LABS: Ferritin 16 ng/mL (8-252); Free T3 3.2 pg/mL (2.18-3.98); T4 Free Direct 1.05 ng/dL (0.76-1.46); T4 Total, Thyroxin 8.4 ug/dL (4.8-13.9)
[2019-11-01 18:11] LABS: Vitamin B12 407 pg/mL (211-911); Vitamin D,25 Hydroxy 38.5 ng/mL
[2019-11-06 04:44] LABS: Anti-Thyroglobulin AB < 1.0 IU/mL (0.0-0.9); Thyroglobulin, Serum Qt. 12.2 ng/mL (1.5-38.5)
== END ==
LOC: MFPLAB 15:13
PROVIDERS: PCP Family Medicine; Referring Provider Family Medicine; Visit Provider Family Medicine
DX: R53.83 Other fatigue (principal); Z78.9 Other specified health status
CPT/HCPCS: 36415; 82306; 82607; 82728; 84432; 84436; 84439; 84481; 85027; 86800

== ENCOUNTER → 2020-01-23 11:15 | Outpatient (CLI) | payer OTHER, SELFPAY ==
[2019-10-31 15:28] VITALS: BMI 22.6
--- NOTE | 2020-01-23 11:18 | US_ITS ---
STUDY: THYROID ULTRASOUND REASON FOR EXAM: Female, 29 years old. Thyromegaly TECHNIQUE: Ultrasound evaluation of the thyroid was performed with real-time and static moreno-scale imaging. COMPARISON: None. FINDINGS: RIGHT LOBE: The right lobe of the thyroid gland is slightly enlarged and measures 5 cm x 1.8 cm x 1.4 cm. There is a homogeneous echotexture. There are no demonstrated solid, cystic or complex lesions. LEFT LOBE: The left lobe of the thyroid gland measures 4.3 cm x 1.7 cm x 1.5 cm. There is a homogeneous echotexture. There are no demonstrated solid, cystic or complex lesions. ISTHMUS: The isthmus measures 3.0 mm. The regional lymph nodes are normal. US/Thyroid IMPRESSION: Mild enlargement of the right lobe of the thyroid. Electronically Signed: Joshua Benjamin, at 13:24 EST , Service support ,
== END ==
LOC: US 11:17
PROVIDERS: PCP Family Medicine; Referring Provider Family Medicine; Visit Provider Family Medicine
DX: E04.9 Nontoxic goiter, unspecified (principal)
CPT/HCPCS: 76536

== ENCOUNTER → 2020-11-18 09:54 | Outpatient (CLI) | payer OTHER, SELFPAY ==
[2020-11-20 15:58] LABS: HPV Reflexed? NOT INDICATED
== END ==
PROVIDERS: PCP Family Medicine; Referring Provider Obstetrics & Gynecology; Visit Provider Obstetrics & Gynecology
DX: Z12.4 Encounter for screening for malignant neoplasm of cervix (principal)
CPT/HCPCS: 88175; G0145

== ENCOUNTER → 2021-01-13 14:10 | Outpatient (CLI) | payer OTHER, SELFPAY ==
[2021-01-13 16:43] LABS: Absolute Lymphocyte Count 2.71 X10^3/uL (0.83-4.51); Absolute Neutrophil Count 3.1 X10^3/uL (2.0-7.7); Basophil# 0.07 X10^3/uL; Basophil% 1.1 % (0-1); Eosinophil# 0.04 X10^3/uL; Eosinophils% 0.6 % (0-5); Hematocrit 38.5 % (37-47); Hemoglobin 12.9 g/dL (12.0-15.0); Lymphocyte # 2.71 X10^3/ul (0.83-4.51); Lymphocyte % 42.6 % (19-41); Mean Corp Hgb Conc 33.5 g/dL (32-36); Mean Corpuscular Hgb 28.6 pg (27.0-32.0); Mean Corpuscular Volume 85.4 fL (81-99); Mean Platelet Vol. 10.7 fl (6.2-12.0); Monocyte# 0.39 X10^3/uL; Monocyte% 6.1 % (0-10); NRBC Flagged by Analyzer 0 % (0-5); Neutrophil # 3.13 X10^3/uL (2.7-7.7); Neutrophil % 49.3 % (47-70); Platelet Count 303 K/mm3 (150-450); RBC Distribution Width CV 11.9 % (11.6-14.6); RBC Distribution Width SD 36.4 fl (35.1-43.9); Red Blood Count 4.51 M/mm3 (4.2-5.4); White Blood Count 6.4 K/mm3 (4.4-11.0)
[2021-01-13 17:43] LABS: Vitamin D,25 Hydroxy 29.9 ng/mL
[2021-01-13 17:44] LABS: T4 Free Direct 0.98 ng/dL (0.76-1.46); Thyroid Stim Hormone (TSH) 2.29 uIU/mL (0.358-3.74)
== END ==
PROVIDERS: Referring Provider Nurse Practitioner Women's Health; Visit Provider Nurse Practitioner Women's Health
DX: R53.83 Other fatigue (principal); Z13.29 Encounter for screening for other suspected endocrine disorder; Z13.21 Encounter for screening for nutritional disorder
CPT/HCPCS: 36415; 82306; 84439; 84443; 85025

== ENCOUNTER → 2022-06-08 | Outpatient (CLI) | payer OTHER, SELFPAY ==
[2022-06-08 17:54] LABS: Hematocrit 38.6 % (37-47); Mean Corp Hgb Conc 33.7 g/dL (32-36); Mean Corpuscular Hgb 29.1 pg (27.0-32.0); Mean Corpuscular Volume 86.4 fL (81-99); Mean Platelet Vol. 10.5 fl (6.2-12.0); Platelet Count 292 K/mm3 (150-450); RBC Distribution Width CV 12.4 % (11.6-14.6); RBC Distribution Width SD 39.3 fl (35.1-43.9); Red Blood Count 4.47 M/mm3 (4.2-5.4)
[2022-06-08 18:28] LABS: Vitamin B12 563 pg/mL (211-911)
[2022-06-08 18:59] LABS: ALB/GLOB Ratio 1.3 RATIO (0.9-2.4); AST(SGOT) 36 U/L (15-37); Alanine Aminotransfer ALT/SGPT 39 U/L (13-56); Albumin, Serum 4.3 g/dL (3.2-5.0); Alkaline Phosphatase 87 U/L (45-117); Anion Gap 7 (5-15); BUN 10 mg/dL (7-18); BUN/Creat Ratio 13.6 RATIO (10-20); Calcium,Total 9.3 mg/dL (8.5-10.1); Chloride 105 mmol/L (98-107); Creatinine, Serum 0.74 mg/dL (0.55-1.02); EST Glomerular Filtration Rate 98 mL/min (>60); Est Glom Filt Rate - Afr Amer 118 mL/min (>60); Globulin 3.3 g/dL (2.2-4.2); Glucose 84 mg/dL (74-106); Potassium 3.5 mmol/L (3.5-5.1); Protein, Total 7.6 g/dL (6.4-8.2); Sodium Level 137 mmol/L (136-145); Thyroid Stim Hormone (TSH) 1.67 uIU/mL (0.358-3.74)
== END | disposition home or self-care (01) ==
LOC: MFPLAB 15:51
PROVIDERS: PCP Nurse Practitioner Family; Referring Provider Nurse Practitioner Family; Visit Provider Nurse Practitioner Family
DX: R53.83 Other fatigue (principal); E04.9 Nontoxic goiter, unspecified
CPT/HCPCS: 36415; 80053; 82607; 84443; 85027

== ENCOUNTER 2023-02-07 09:33 | Emergency (ER) | payer OTHER, SELFPAY ==
[2023-02-07 09:34] VITALS: BP 143/58; PULSE 75; RESP 16; TEMP 36.4; O2SAT 99; BMI 23.7
--- NOTE | 2023-02-07 09:40 | EDS_ITS ---
HPI History of Present Illness Chief Complaint: Headache Informant: patient Onset/Context/Timing Onset: Weeks (2) Context: Sudden Timing: Continuous Quality -Headache: Positive for Other (Pressure) Location: Generalized Worsened by: Nothing Relieved by: Nothing Associated Symptoms/Injury Associated Symptoms: Positive for Nausea, Vomiting, Tingling and Visual Changes; Negative for Fever, Sore Throat, Sinus Pressure, Numbness, Preceding Aura, Blurred Vision, Photophobia or Visual Loss Injury - YU: Negative for Direct Trauma or Fall Narrative Narrative: Patient presents with a headache that began approximately 2 weeks ago. Patient states it began rather suddenly. Patient states it has been constant. Patient describes it as a pressure. Patient states her headache is generalized. Patient states nothing makes it worse and nothing makes it better. Patient admits to some tingling in her hands that developed today. Patient also admits to some spots in front of her vision today. Patient states she saw her primary care physician for this who prescribed amoxicillin and steroids for possible sinusitis. Patient states she completed this with no improvement. Patient admits to some nausea and dry heaves. Patient denies any fevers or chills. [facility] Medical History Abnormal Pap smear of cervix Acne Home Medications levonorgestrel 21 mcg/24 hours (8 yrs) 52 mg intrauterine device (Mirena) 1 device intrauterine ONCE 01/07/23 [History Last Taken Unknown] multivitamin 1 tab PO DAILY 01/07/23 [History Last Taken Unknown] Allergy/AdvReac Type Severity Reaction Status Date / Time naproxen Allergy Swelling Verified 02/07/23 09:33 Surgical History delivery delivered H/O tubal ligation Social History Smoking Status: Never smoker alcohol intake: never substance use type: does not use caffeine: Yes what type of physical activity do you participate in: walking frequency: daily seatbelt use: always do you feel safe at home: Yes additional social history: [employer] 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 ROS ROS ED Constitutional Constitutional ED: Denies chills or fever(s) Eyes Eyes: Reports change in vision bilateral; Denies blurry vision ENT ENT ED: Denies rhinorrhea or sore throat Cardiovascular Cardiovascular: Denies chest pain or palpitations Respiratory/Chest Respiratory/Chest: Reports dyspnea; Denies cough Gastrointestinal Gastrointestinal: Reports nausea and vomiting Genitourinary Genitourinary ED: Denies dysuria or hematuria Musculoskeletal Musculoskeletal: Reports neck pain; Denies back pain Integumentary Denies abscess or rash Neurologic Neurologic: Reports headache(s) and paresthesias RUE and LUE; Denies weakness Allergic/Immunologic Allergic/Immunologic ED: Denies mouth swelling or urticaria EXAM Physical Exam Const Vital Signs: 02/07/23 09:34 Temperature 97.6 F L Temperature Source Temporal Pulse Rate 75 Respiratory Rate 16 Blood Pressure 143/58 H Blood Pressure Mean 86 Pulse Ox 99 Oxygen Delivery Method Room Air Positive well nourished and well developed General Appearance ED: well developed and NAD HEENT Reports moist mucous membranes atraumatic; Negative for temporal artery tenderness Neck supple, no meningeal signs and no JVD Resp normal respiratory effort and clear to auscultation bilaterally Cardio regular rate and regular rhythm GI non-tender and non-distended Palpation: soft Extremity normal to inspection and full ROM Neuro oriented x3, CN's II-XII intact bilaterally and no sensory deficits noted Lavelle Coma Scale: document GCS findings Spontaneous Obeys Commands Oriented 15 Sensorium / Orientation: awake and alert Speech: speech normal Motor Exam: strength 5/5 throughout Psych mental status grossly normal MDM MDM MDM Narrative Medical decision making narrative: Differential diagnosis includes intracranial bleeding, migraine headache, tension headache, sinusitis, and viral infection. CT scan of the brain will be obtained to assess for intracranial bleeding and sinusitis. CBC will be obtained to assess for leukocytosis and anemia. Basic metabolic profile will be obtained to assess for electrolyte abnormality and renal function. COVID-19 rapid antigen will be obtained to assess for COVID-19 infection. Influenza A and influenza B antigens will be obtained to assess for influenza infection. Lab Data Attestation: I reviewed the patient's lab results. Lab results narrative: CBC was reviewed and was within normal limits. Basic metabolic profile was reviewed and was within normal limits. Labs: Laboratory Results - last 24 hr 02/07/23 10:15 WBC 8.5 RBC 4.60 Hgb 13.7 Hct 40.2 MCV 87.4 MCH 29.8 MCHC 34.1 RDW Std Deviation 38.5 RDW Coeff of Tani 12.1 Plt Count 277 MPV 10.0 Immature Gran % (Auto) 0.500 Neut % (Auto) 58.5 Lymph % (Auto) 34.4 Crook % (Auto) 4.7 Eos % (Auto) 1.1 Baso % (Auto) 0.8 Absolute Neuts (auto) 5.0 Absolute Lymphs (auto) 2.93 Nucleated RBC % 0 Sodium 139 Potassium 3.7 Chloride 104 Carbon Dioxide 31.0 Anion Gap 4 L BUN 9 Creatinine 0.80 Estim Creat Clear Calc 91.68 Est GFR (MDRD) Af Amer 108 Est GFR (MDRD) Non-Af 89 BUN/Creatinine Ratio 11.3 Glucose 100 Calcium 9.0 Radiography Diagnostic Testing: Clinical Impression(s) from Imaging Studies Brain CT 02/07/23 09:49 IMPRESSION: Normal unenhanced CT scan of the brain. Electronically Signed: Joshua Benjamin MD at 10:54 EST , CT scan of the brain was obtained. There is no acute intracranial abnormality. This was interpreted by the radiologist and was also independently reviewed by myself. Treatment and Re-Evaluation Narrative: Patient was given IV fluids, Reglan, and Benadryl. Patient had minimal impro vement with this. Patient was given injections of Toradol and Imitrex. Patient was feeling better after this. Patient states she still has headache but it was manageable. Patient wants to go home. Patient was instructed to follow-up with her primary care physician in 5 to 7 days. Patient states she has an appointment in 8 days with a headache specialist. Patient was instructed to follow-up with this appointment. Patient understood and was agreeable with the plan. All questions were answered. Discharge Plan Triage Chief Complaint: Headache ED Provider: Jesús Monroe Dx/Rx/DC Orders Clinical Impression: Headache Instructions: ED Headache Unspecified Prescriptions: No Action Mirena 21 mcg/24 hours (8 yrs) 52 mg intrauterine device 1 device intrauterine ONCE Rx Instructions: as a single dose multivitamin Tablet 1 tab PO DAILY Primary Care Provider: Sadie Doyle Referrals: Sadie Doyle, DO [Primary Care Provider] - 5-7 Days Disposition Disposition: Home, Self Care
--- NOTE | 2023-02-07 09:49 | CT_ITS ---
STUDY: CT BRAIN WITHOUT CONTRAST REASON FOR EXAM: Female, 32 years old. Headaches and visual changes. Tingling in the extremities. RADIATION DOSAGE (If Supplied By Facility): CTDIvol = ( 44.99 ) mGy, DLP = ( 829.85 ) mGycm TECHNIQUE: Transaxial CT imaging of the brain was performed without administration of intravenous contrast material. Individualized dose optimization techniques were used for this CT. COMPARISON: No relevant priors. FINDINGS: Normal soft tissue structures. Normal calvarium. Normal size ventricles and extra-axial spaces for the patient''s age. Normal white matter tracts of the cerebral hemispheres. Normal basal ganglia and thalami. Normal brainstem. Normal cerebellum. There is no intracranial hemorrhage. There are no findings of an acute ischemic infarction. Normal visualized paranasal sinuses. CT/Brain/Head without Contrast IMPRESSION: Normal unenhanced CT scan of the brain. Electronically Signed: Joshua Benjamin MD at 10:54 EST ,
[2023-02-07 10:22] LABS: Absolute Lymphocyte Count 2.93 X10^3/uL (0.83-4.51); Basophil# 0.07 X10^3/uL; Basophil% 0.8 % (0-1); Eosinophil# 0.09 X10^3/uL; Eosinophils% 1.1 % (0-5); Hematocrit 40.2 % (37-47); Hemoglobin 13.7 g/dL (12.0-15.0); Lymphocyte # 2.93 X10^3/ul (0.83-4.51); Lymphocyte % 34.4 % (19-41); Mean Corp Hgb Conc 34.1 g/dL (32-36); Mean Corpuscular Hgb 29.8 pg (27.0-32.0); Mean Corpuscular Volume 87.4 fL (81-99); Monocyte% 4.7 % (0-10); NRBC Flagged by Analyzer 0 % (0-5); Neutrophil # 4.98 X10^3/uL (2.7-7.7); Neutrophil % 58.5 % (47-70); Platelet Count 277 K/mm3 (150-450); RBC Distribution Width CV 12.1 % (11.6-14.6); RBC Distribution Width SD 38.5 fl (35.1-43.9); White Blood Count 8.5 K/mm3 (4.4-11.0)
[2023-02-07] MEDS: Metoclopramide 10 MG/2 ML Vial IV (10:30)
[2023-02-07] MEDS: DiphenhydrAMINE 50 MG/ML Syringe 25 MG IV (10:31)
[2023-02-07] MEDS: 0.9% Normal Saline (1000mL) 1,000 ML 999 ML IV (10:31)
[2023-02-07 10:34] LABS: Anion Gap 4 (5-15); BUN 9 mg/dL (7-18); BUN/Creat Ratio 11.3 RATIO (10-20); Chloride 104 mmol/L (98-107); EST Glomerular Filtration Rate 89 mL/min (>60); Est Glom Filt Rate - Afr Amer 108 mL/min (>60); Estimated Creatinine Clearance 91.68 ml/min; Glucose 100 mg/dL (74-106); Potassium 3.7 mmol/L (3.5-5.1); Sodium Level 139 mmol/L (136-145)
[2023-02-07 12:00] VITALS: RESP 16
[2023-02-07] MEDS: Ketorolac 30 MG/ML Syringe IV (12:15)
[2023-02-07] MEDS: SUMAtriptan 6 MG/0.5 ML Vial SC (12:16)
== END 2023-02-07 13:00 | disposition home or self-care (01) ==
PROVIDERS: Emergency Provider Emergency Medicine; PCP Family Medicine; Visit Provider Emergency Medicine
DX: R51.9 Headache, unspecified (principal)
CPT/HCPCS: 70450; 80048; 85025; 87428; 96374; 96375; 99283; J7030; J3030

== ENCOUNTER → 2024-01-18 | Outpatient (CLI) | payer OTHER, SELFPAY ==
[2024-01-26 14:10] LABS: HPV APTIMA, High Risk Negative (Negative)
== END | disposition home or self-care (01) ==
LOC: LABSPEC 14:56
PROVIDERS: Referring Provider Nurse Practitioner Family; Visit Provider Nurse Practitioner Family
DX: Z12.4 Encounter for screening for malignant neoplasm of cervix (principal)
CPT/HCPCS: 87070; 87077; 87205; 87624; 88175; G0145

== ENCOUNTER → 2024-01-30 | Outpatient (CLI) | payer OTHER, SELFPAY ==
--- NOTE | 2024-01-30 08:54 | BI_ITS ---
MAMMOGRAPHY - BILATERAL DIAGNOSTIC REASON FOR EXAM: Female, 33 years old. lump in left breast PERTINENT HISTORY: Non-contributory. TECHNIQUE: Digital examination. Mediolateral oblique (MLO) and craniocaudad (CC) views of both breasts were obtained. CAD: CAD was performed on this study. COMPARISON: None. FINDINGS: Breast Composition: There are scattered areas of fibroglandular density. There are no dominant masses or suspicious calcifications. No other significant abnormalities are identified. BI/DIAG MAMM W/CAD, BILAT IMPRESSION: Stable bilateral diagnostic mammogram. Ultrasound of the palpable abnormality in the lower outer quadrant left breast will be obtained. ASSESSMENT CATEGORY: BIRADS Category 0: Incomplete. Need additional imaging evaluation. A letter regarding these results will be sent to the patient by the facility within 30 days. FOLLOW UP RECOMMENDATION: Ultrasound Recommended. (I) Approximately 10% of breast cancers are not detected by mammography. A normal mammogram should not delay biopsy of a clinically suspicious abnormality. Electronically Signed: Antony Arias MD at 10:01 [facility] ,
--- NOTE | 2024-01-30 08:54 | US_ITS ---
STUDY: ULTRASOUND BREAST - LEFT REASON FOR EXAM: Female, 33 years old. Palpable mass TECHNIQUE: Axial and longitudinal images of the LEFT breast were performed with a high resolution ultrasound transducer. # OF IMAGES: 17 COMPARISON: Diagnostic mammogram earlier today FINDINGS: LEFT Breast: Heterogeneous background echotexture. Multiple longitudinal and transverse centimeters the lower outer quadrant left breast do not demonstrate a discrete solid or cystic mass most consistent with normal breast parenchyma.: US/Breast Limited Unilateral IMPRESSION: Normal diagnostic mammogram left breast ultrasound. However, biopsy of any palpable abnormality should be performed if clinically indicated. ASSESSMENT CATEGORY: BIRADS Category 1: Negative. A letter regarding these results will be sent to the patient by the facility within 30 days. Electronically Signed: Antony Arias MD at 15:53 EST ,
== END | disposition home or self-care (01) ==
PROVIDERS: PCP Family Medicine; Referring Provider Nurse Practitioner Family; Visit Provider Nurse Practitioner Family
DX: N63.20 Unspecified lump in the left breast, unspecified quadrant (principal)
CPT/HCPCS: 76642; 77062; 77066; G0279

== ENCOUNTER → 2025-01-24 | Outpatient (CLI) | payer OTHER, SELFPAY | END | disposition home or self-care (01) | LOC: LABSPEC 16:22 | PROVIDERS: PCP Family Medicine; Visit Provider Nurse Practitioner Family | DX: N89.8 Other specified noninflammatory disorders of vagina (principal) | CPT/HCPCS: 87070; 87205 ==